=== PATIENT | female | born 1985 | race Two or more races ===

== ENCOUNTER 2018-04-08 11:24 | Emergency (ER) | payer SELFPAY ==
[~2018-04-08] VITALS: Ht 165.1 cm; Wt 81.7 kg
[~2018-04-08 11:24] MED LIST: ACEDIPPM PO; AMOCLA875 PO; AMOX500 PO; ANTOXYBENA OT; Cleocin HCl300 MG PO; DOXY100 PO; Flonase 0.05% N16 GM; HYDACE5 PO; Norco 5-325 Ta1 EACH PO; OXYACE5T PO; RXANTBENOT AU
== END 2018-04-08 13:48 | disposition left against medical advice (07) ==
LOC: ER 11:24
DX: R11.2 Nausea with vomiting, unspecified (principal); R19.7 Diarrhea, unspecified; Z53.21 Procedure and treatment not carried out due to patient leaving prior to being seen by health care provider
CPT/HCPCS: 99281

== ENCOUNTER 2021-09-16 12:39 | Emergency (ER) | payer OTHER ==
[~2021-09-16] VITALS: Ht 165.1 cm; Wt 68.0 kg
[2021-09-16] MEDS ORDERED: GABA400 PO (13:08)
[2021-09-16] MEDS ORDERED: NAPR500ERA PO (13:08)
== END 2021-09-16 15:07 | disposition home or self-care (01) ==
LOC: ER 12:39
DX: F22 Delusional disorders (principal); F17.200 Nicotine dependence, unspecified, uncomplicated; Z88.1 Allergy status to other antibiotic agents; Z88.2 Allergy status to sulfonamides; Z79.899 Other long term (current) drug therapy
CPT/HCPCS: 99282

== ENCOUNTER → 2022-04-23 | Outpatient (CLI) | payer OTHER ==
[~2022-04-23] MED LIST changes: +GABA400 PO; +NAPR500ERA PO
[2022-04-27 10:09] LABS: COTININE Negative ng/mL (Cutoff=300)
== END | disposition home or self-care (01) ==
LOC: LAB SHORT 10:08 → LAB 10:08
PROVIDERS: Orthopaedic Surgery
DX: Z87.891 Personal history of nicotine dependence (principal)

== ENCOUNTER 2022-06-10 10:49 | Day surgery (SDC) | payer OTHER ==
[~2022-06-10] VITALS: Ht 165.1 cm; Wt 76.2 kg
[2022-06-10] MEDS ORDERED: AMIT25 PO (11:33)
--- NOTE | 2022-06-10 11:43 | NUR ---
06/10/22 1143 Minnie Concepcion PT COMFORTABLE IN BED. SIDE RAILS UP. CALL LIGHT WITHIN REACH
[2022-06-10 13:19] VITALS: BP 113/77
== END 2022-06-10 13:17 | disposition home or self-care (01) ==
LOC: ORSCSDS 10:49
PROVIDERS: Orthopaedic Surgery
PROC: 01N54ZZ Release Median Nerve, Percutaneous Endoscopic Approach (ICD-10-PCS; principal; 2022-06-10 12:00)
DX: G56.03 Carpal tunnel syndrome, bilateral upper limbs (principal); Z87.891 Personal history of nicotine dependence; Z79.899 Other long term (current) drug therapy
CPT/HCPCS: J2250; J7120

== ENCOUNTER 2022-07-01 10:06 | Day surgery (SDC) | payer OTHER ==
[~2022-07-01] VITALS: Ht 165.1 cm; Wt 75.3 kg
[~2022-07-01 10:06] MED LIST changes: +AMIT25 PO
[2022-07-01 12:51] VITALS: BP 124/84
--- NOTE | 2022-07-01 13:09 | NUR ---
07/01/22 1309 [facility] HERRING-HENRY BABB ASSISTING WITH CARE.
== END 2022-07-01 13:24 | disposition home or self-care (01) ==
LOC: ORSCSDS 10:06
PROVIDERS: Orthopaedic Surgery
PROC: 01N54ZZ Release Median Nerve, Percutaneous Endoscopic Approach (ICD-10-PCS; principal; 2022-07-01 11:15)
DX: G56.02 Carpal tunnel syndrome, left upper limb (principal); Z87.891 Personal history of nicotine dependence; Z79.899 Other long term (current) drug therapy
CPT/HCPCS: A9270; J2250; J7120

== ENCOUNTER 2022-11-28 13:51 | Emergency (ER) | payer OTHER ==
[~2022-11-28] VITALS: Ht 165.1 cm; Wt 81.7 kg
[2022-11-28 14:41] LABS: BASOPHILS ABSOLUTE AUTO 0.08 K/mm3 (0.00-0.23); BASOPHILS PERCENT AUTO 1 % (0-2); EOSINOPHILS ABSOLUTE AUTO 0.17 K/mm3 (0.00-0.68); EOSINOPHILS PERCENT AUTO 3 % (0-6); Hematocrit 39.1 % (33.0-51.0); Hemoglobin 13.7 g/dL (11.5-16.0); IMMATURE GRAN ABSOLUTE AUTO 0.02 K/mm3 (0.00-0.10); IMMATURE GRAN PERCENT AUTO 0 % (0-1); LYMPHOCYTES ABSOLUTE AUTO 2.29 K/mm3 (0.84-5.20); LYMPHOCYTES PERCENT AUTO 38 % (21-46); MONOCYTES ABSOLUTE AUTO 0.45 K/mm3 (0.16-1.47); MONOCYTES PERCENT AUTO 8 % (4-13); Mean Corpuscular HGB 30.6 pg (26.0-34.0); Mean Corpuscular Volume 88 fL (80-100); Mean Platelet Volume 8.4 fL (9.1-12.4); NEUTROPHILS ABSOLUTE AUTO 2.99 K/mm3 (1.96-9.15); NEUTROPHILS PERCENT AUTO 50 % (41-73); Platelet Count 315 K/mm3 (150-400); RDW Coefficient Variation 12.2 % (11.7-14.2); RDW Standard Deviation 39.3 fL (35.1-46.3); Red Blood Cell Count 4.47 M/mm3 (3.80-5.20)
[2022-11-28 14:57] LABS: Albumin, Blood 3.5 g/dL (3.4-5.0); Albumin/Globulin Ratio 0.9 (0.8-1.8); Bilirubin, Total 0.8 mg/dL (0.1-1.0); Bun/Creatinine Ratio 15.5 (12.0-20.0); Calcium, Blood 8.9 mg/dL (8.5-10.1); Creatinine, Blood 0.9 mg/dL (0.40-1.00); Globulin, Blood 3.9 g/dL (2.2-4.0); Potassium, Blood 3.7 mmol/L (3.5-5.5); Total Protein, Blood 7.4 g/dL (6.4-8.2)
[2022-11-28 16:00] VITALS: BP 143/92
== END 2022-11-28 16:43 | disposition home or self-care (01) ==
LOC: ER 13:51
PROVIDERS: Student in an Organized Health Care Education/Training Program
DX: R07.9 Chest pain, unspecified (principal); M79.89 Other specified soft tissue disorders; F17.210 Nicotine dependence, cigarettes, uncomplicated; Z88.1 Allergy status to other antibiotic agents; Z88.2 Allergy status to sulfonamides; Z79.899 Other long term (current) drug therapy
CPT/HCPCS: 71260; 80053; 85025; 93005; 93010; 93971; 99284-25; Q9967

== ENCOUNTER 2022-12-30 15:32 | Emergency (ER) | payer OTHER ==
[~2022-12-30] VITALS: Ht 165.1 cm; Wt 77.1 kg
[~2022-12-30 15:32] MED LIST changes: -DIPH25 PO; -PRED20 PO; -PYRA250T PO
[2022-12-30 16:10] LABS: BASOPHILS ABSOLUTE AUTO 0.01 K/mm3 (0.00-0.23); BASOPHILS PERCENT AUTO 0 % (0-2); EOSINOPHILS ABSOLUTE AUTO 0.33 K/mm3 (0.00-0.68); EOSINOPHILS PERCENT AUTO 5 % (0-6); Hematocrit 36.6 % (33.0-51.0); Hemoglobin 13.6 g/dL (11.5-16.0); IMMATURE GRAN ABSOLUTE AUTO 0.05 K/mm3 (0.00-0.10); IMMATURE GRAN PERCENT AUTO 1 % (0-1); LYMPHOCYTES ABSOLUTE AUTO 0.57 K/mm3 (0.84-5.20); LYMPHOCYTES PERCENT AUTO 9 % (21-46); MONOCYTES ABSOLUTE AUTO 0.26 K/mm3 (0.16-1.47); MONOCYTES PERCENT AUTO 4 % (4-13); Mean Corpuscular HGB Conc 37.2 g/dL (31.5-36.5); Mean Corpuscular Volume 83 fL (80-100); Mean Platelet Volume 8.6 fL (9.1-12.4); NEUTROPHILS ABSOLUTE AUTO 4.92 K/mm3 (1.96-9.15); NEUTROPHILS PERCENT AUTO 80 % (41-73); Platelet Count 290 K/mm3 (150-400); RDW Coefficient Variation 12.1 % (11.7-14.2); RDW Standard Deviation 37.2 fL (35.1-46.3); Red Blood Cell Count 4.39 M/mm3 (3.80-5.20); White Blood Cell Count 6.14 K/mm3 (4.00-11.30)
[2022-12-30 16:23] LABS: Albumin, Blood 2.9 g/dL (3.4-5.0); Albumin/Globulin Ratio 0.8 (0.8-1.8); Bilirubin, Total 0.1 mg/dL (0.1-1.0); Bun/Creatinine Ratio 9.7 (12.0-20.0); Calcium, Blood 7.5 mg/dL (8.5-10.1); Creatinine, Blood 0.83 mg/dL (0.40-1.00); Globulin, Blood 3.7 g/dL (2.2-4.0); Potassium, Blood 3.5 mmol/L (3.5-5.5); Total Protein, Blood 6.6 g/dL (6.4-8.2)
[2022-12-30 17:54] LABS: Influenza A, PCR NEGATIVE (NEGATIVE); Influenza B, PCR NEGATIVE (NEGATIVE); Resp Syncytial Virus, PCR NEGATIVE (NEGATIVE); SARS-Cov-2 (COVID-19) PCR, MMC NEGATIVE (NEGATIVE)
[2022-12-30 18:43] LABS: Source, Urine Clean Catch
[2022-12-30 18:48] LABS: Bilirubin, Urine Neg (Neg); Blood, Urine 2+ (Neg); Color, Urine Yellow (P-Yellow); Glucose Qualitative, Urine Neg (Neg); Ketones, Urine Neg (Neg); Leukocyte Esterase, Urine Neg (Neg); Nitrite, Urine Neg (Neg); Protein, Urine Neg (Neg); Urobilinogen, Urine NORM (Normal)
[2022-12-30 19:10] LABS: Appearance, Urine Hazy (Clear)
[2022-12-30 19:11] LABS: Squamous Epithelial Cells Few /hpf (Few); White Blood Cells, Urine 0-2 /hpf (0-5)
[2022-12-30 19:12] LABS: Bacteria Mod /hpf
[2022-12-30 19:30] VITALS: BP 93/53
[2022-12-30] MEDS ORDERED: DIPH25 PO (19:49)
[2022-12-30] MEDS ORDERED: PRED20 PO (19:49)
== END 2022-12-30 20:04 | disposition home or self-care (01) ==
LOC: ER 15:32
PROVIDERS: Emergency Medicine
DX: L23.9 Allergic contact dermatitis, unspecified cause (principal); R51.9 Headache, unspecified; Z88.2 Allergy status to sulfonamides; Z88.1 Allergy status to other antibiotic agents; Z79.899 Other long term (current) drug therapy; F17.200 Nicotine dependence, unspecified, uncomplicated; R06.00 Dyspnea, unspecified; R50.9 Fever, unspecified; R07.9 Chest pain, unspecified
CPT/HCPCS: 0241U; 70450; 71046; 80053; 81001; 83605; 84484; 84703; 85025; 85379; 85384; 87086; 96374; 96375; 99285-25; J0780; J1200; J1885; J2930

== ENCOUNTER → 2022-12-30 | Outpatient (CLI) | payer OTHER ==
[~2022-12-30] MED LIST changes: +DIPH25 PO; +PRED20 PO; +PYRA250T PO
[2022-12-30 14:38] LABS: BASOPHILS ABSOLUTE AUTO 0.02 K/mm3 (0.00-0.23); BASOPHILS PERCENT AUTO 0 % (0-2); EOSINOPHILS ABSOLUTE AUTO 0.37 K/mm3 (0.00-0.68); EOSINOPHILS PERCENT AUTO 6 % (0-6); Hematocrit 41.7 % (33.0-51.0); Hemoglobin 15.4 g/dL (11.5-16.0); IMMATURE GRAN ABSOLUTE AUTO 0.04 K/mm3 (0.00-0.10); IMMATURE GRAN PERCENT AUTO 1 % (0-1); LYMPHOCYTES ABSOLUTE AUTO 0.72 K/mm3 (0.84-5.20); LYMPHOCYTES PERCENT AUTO 11 % (21-46); MONOCYTES ABSOLUTE AUTO 0.26 K/mm3 (0.16-1.47); MONOCYTES PERCENT AUTO 4 % (4-13); Mean Corpuscular HGB 30.6 pg (26.0-34.0); Mean Corpuscular HGB Conc 36.9 g/dL (31.5-36.5); Mean Corpuscular Volume 83 fL (80-100); Mean Platelet Volume 8.4 fL (9.1-12.4); NEUTROPHILS ABSOLUTE AUTO 4.93 K/mm3 (1.96-9.15); NEUTROPHILS PERCENT AUTO 78 % (41-73); Platelet Count 324 K/mm3 (150-400); RDW Coefficient Variation 12.3 % (11.7-14.2); RDW Standard Deviation 37.3 fL (35.1-46.3); Red Blood Cell Count 5.03 M/mm3 (3.80-5.20); White Blood Cell Count 6.34 K/mm3 (4.00-11.30)
[2022-12-30 14:49] LABS: Albumin, Blood 3.4 g/dL (3.4-5.0); Albumin/Globulin Ratio 0.8 (0.8-1.8); Bilirubin, Total 0.3 mg/dL (0.1-1.0); Bun/Creatinine Ratio 8.7 (12.0-20.0); Calcium, Blood 8.7 mg/dL (8.5-10.1); Creatinine, Blood 1.04 mg/dL (0.40-1.00); Globulin, Blood 4.3 g/dL (2.2-4.0); Potassium, Blood 3.5 mmol/L (3.5-5.5); Total Protein, Blood 7.7 g/dL (6.4-8.2)
== END | disposition home or self-care (01) ==
LOC: LAB SHORT 14:32 → LAB 14:32
PROVIDERS: Chiropractor
DX: R07.9 Chest pain, unspecified (principal); R06.00 Dyspnea, unspecified; R50.9 Fever, unspecified
CPT/HCPCS: 80053; 83605; 84484; 85025; 85379; 85384; 87040

== ENCOUNTER 2023-01-02 08:34 | Emergency (ER) | payer OTHER ==
[~2023-01-02] VITALS: Ht 165.1 cm; Wt 77.1 kg
[~2023-01-02 08:34] MED LIST changes: +DIPH25 PO; +PRED20 PO
[2023-01-02 10:25] LABS: BASOPHILS ABSOLUTE AUTO 0.04 K/mm3 (0.00-0.23); BASOPHILS PERCENT AUTO 1 % (0-2); EOSINOPHILS ABSOLUTE AUTO 0.06 K/mm3 (0.00-0.68); EOSINOPHILS PERCENT AUTO 1 % (0-6); Hematocrit 38.1 % (33.0-51.0); Hemoglobin 13.8 g/dL (11.5-16.0); IMMATURE GRAN ABSOLUTE AUTO 0.03 K/mm3 (0.00-0.10); IMMATURE GRAN PERCENT AUTO 0 % (0-1); LYMPHOCYTES ABSOLUTE AUTO 0.83 K/mm3 (0.84-5.20); LYMPHOCYTES PERCENT AUTO 12 % (21-46); MONOCYTES ABSOLUTE AUTO 0.14 K/mm3 (0.16-1.47); MONOCYTES PERCENT AUTO 2 % (4-13); Mean Corpuscular HGB 30.1 pg (26.0-34.0); Mean Corpuscular HGB Conc 36.2 g/dL (31.5-36.5); Mean Corpuscular Volume 83 fL (80-100); Mean Platelet Volume 8.6 fL (9.1-12.4); NEUTROPHILS ABSOLUTE AUTO 5.77 K/mm3 (1.96-9.15); NEUTROPHILS PERCENT AUTO 84 % (41-73); Platelet Count 351 K/mm3 (150-400); RDW Coefficient Variation 12.7 % (11.7-14.2); RDW Standard Deviation 38.5 fL (35.1-46.3); Red Blood Cell Count 4.58 M/mm3 (3.80-5.20); White Blood Cell Count 6.87 K/mm3 (4.00-11.30)
[2023-01-02 10:39] LABS: Albumin, Blood 3.6 g/dL (3.4-5.0); Albumin/Globulin Ratio 0.9 (0.8-1.8); Bilirubin, Total 0.3 mg/dL (0.1-1.0); Bun/Creatinine Ratio 18.1 (12.0-20.0); Calcium, Blood 8.4 mg/dL (8.5-10.1); Creatinine, Blood 0.89 mg/dL (0.40-1.00); Globulin, Blood 4.2 g/dL (2.2-4.0); Potassium, Blood 3.5 mmol/L (3.5-5.5); Total Protein, Blood 7.8 g/dL (6.4-8.2)
[2023-01-02] MEDS ORDERED: PRED20 PO (12:07)
[2023-01-02] MEDS ORDERED: PYRA250T PO (12:18)
[2023-01-02 12:51] VITALS: BP 144/97
[2023-01-02 12:52] LABS: U Amphetamine Screen DETECTED; U Barbituate Screen Not Detected; U Benzodiazapine Screen Not Detected; U Buprenorphine Screen Not Detected; U Cannabinoids Screen Not Detected; U Cocaine Screen Not Detected; U Methadone Screen Not Detected; U Methamphetamine Screen DETECTED; U Opiates Screen Not Detected; U Oxycodone Screen Not Detected; U Phencyclidine Screen Not Detected; U Propoxyphene Screen Not Detected
[2023-01-03 23:08] LABS: CHLAMYDIA TRACHOMATIS, NAA Negative (Negative)
[2023-01-04 04:09] LABS: HBSAG SCREEN Negative (Negative); HCV ANTIBODY Non Reactive (Non Reactive); HEP B CORE AB, TOT Negative (Negative)
[2023-01-04 07:09] LABS: RHEUMATOID ARTHRITIS FACTOR <10.0 IU/mL (<14.0)
[2023-01-06 19:08] LABS: FINAL INTERPRETATION HIV Negative (.); HIV 1 AB Non Reactive (Non Reactive); HIV 1 RNA QUALITATIVE Non Reactive (Non Reactive); HIV 2 AB Non Reactive (Non Reactive); HIV 2 RNA QUALITATIVE Non Reactive (Non Reactive); HIV AB/P24 AG SCREEN Preliminary Reactive (Non Reactive); INTERPRETATION: Negative (.)
== END 2023-01-02 12:52 | disposition home or self-care (01) ==
LOC: ER 08:34
PROVIDERS: Family Medicine
DX: L50.9 Urticaria, unspecified (principal); E86.0 Dehydration; Z88.2 Allergy status to sulfonamides; Z88.1 Allergy status to other antibiotic agents; Z79.52 Long term (current) use of systemic steroids; F17.200 Nicotine dependence, unspecified, uncomplicated
CPT/HCPCS: 80053; 84443; 84484; 85025; 86038; 86140; 86200; 86431; 86592; 86704; 86803; 87340; 87389; 87491; 87591; 93005; 93010; 96361; 96374; 96375; 99285-25; G0480; J1200; J2930; J7030

== ENCOUNTER 2023-11-05 21:39 | Emergency (ER) | payer OTHER ==
[~2023-11-05] VITALS: Ht 165.1 cm; Wt 81.7 kg
[~2023-11-05 21:39] MED LIST changes: +PYRA250T PO
[2023-11-05 21:45] VITALS: BP 146/89
[2023-11-05] MEDS ORDERED: Prednisone20 MG PO (21:48)
[2023-11-05] MEDS ORDERED: PredniSONE 20 MG Tab PO ONE (21:50)
== END 2023-11-05 21:51 | disposition home or self-care (01) ==
LOC: ER 21:39
DX: L23.7 Allergic contact dermatitis due to plants, except food (principal); Z88.1 Allergy status to other antibiotic agents; Z88.2 Allergy status to sulfonamides; Z79.899 Other long term (current) drug therapy; Z79.52 Long term (current) use of systemic steroids; F17.200 Nicotine dependence, unspecified, uncomplicated
CPT/HCPCS: 99282; J7512

== ENCOUNTER 2024-11-01 13:25 | Emergency (ER) | payer OTHER ==
[~2024-11-01] VITALS: Ht 165.1 cm; Wt 72.6 kg
[~2024-11-01 13:25] MED LIST changes: +Prednisone20 MG PO
[2024-11-01 14:30] VITALS: BP 142/93
[2024-11-01 15:43] LABS: BASOPHILS ABSOLUTE AUTO 0.09 K/mm3 (0.00-0.23); BASOPHILS PERCENT AUTO 1 % (0-2); EOSINOPHILS ABSOLUTE AUTO 0.15 K/mm3 (0.00-0.68); EOSINOPHILS PERCENT AUTO 2 % (0-6); Hematocrit 39.8 % (33.0-51.0); Hemoglobin 14.2 g/dL (11.5-16.0); IMMATURE GRAN ABSOLUTE AUTO 0.02 K/mm3 (0.00-0.10); IMMATURE GRAN PERCENT AUTO 0 % (0-1); LYMPHOCYTES ABSOLUTE AUTO 2.27 K/mm3 (0.84-5.20); LYMPHOCYTES PERCENT AUTO 37 % (21-46); MONOCYTES ABSOLUTE AUTO 0.51 K/mm3 (0.16-1.47); MONOCYTES PERCENT AUTO 8 % (4-13); Mean Corpuscular HGB Conc 35.7 g/dL (31.5-36.5); Mean Corpuscular Volume 86 fL (80-100); NEUTROPHILS ABSOLUTE AUTO 3.17 K/mm3 (1.96-9.15); NEUTROPHILS PERCENT AUTO 51 % (41-73); NRBC ABSOLUTE 0.00 K/mm3 (0.00-0.02); NRBC Auto 0.0 /100 WBC (0.0-0.2); Platelet Count 409 K/mm3 (150-400); RDW Coefficient Variation 12.7 % (11.7-14.2); RDW Standard Deviation 39.8 fL (35.1-46.3)
[2024-11-01 16:19] LABS: Alanine Aminotransfer (ALT/SGP 17.0 U/L (12-78); Albumin, Blood 3.5 g/dL (3.4-5.0); Albumin/Globulin Ratio 0.9 (0.8-1.8); Anion Gap 7.0 mmol/L (3-11); Aspartate Aminotrans (AST/SGOT 20.0 U/L (12-37); Bilirubin, Total 1.0 mg/dL (0.1-1.0); Blood Urea Nitrogen 8.0 mg/dL (8-24); CO2, Blood 27.0 mmol/L (21-32); Calcium, Blood 8.7 mg/dL (8.5-10.1); Chloride, Blood 106.0 mmol/L (98-108); Creatinine, Blood 0.83 mg/dL (0.40-1.00); Globulin, Blood 3.7 g/dL (2.2-4.0); Glucose, Blood 88.0 mg/dL (70-99); Potassium, Blood 4.2 mmol/L (3.5-5.5); Sodium, Blood 136.0 mmol/L (136-145); Total Protein, Blood 7.2 g/dL (6.4-8.2)
[2024-11-01 17:15] LABS: Source, Urine Clean Catch
[2024-11-01] MEDS ORDERED: CEPH500 PO (17:19)
[2024-11-01 17:21] LABS: Bilirubin, Urine Neg (Neg); Color, Urine Yellow (P-Yellow); Glucose Qualitative, Urine Neg (Neg); Ketones, Urine Neg (Neg); Leukocyte Esterase, Urine 1+ (Neg); Protein, Urine Neg (Neg); Specific Gravity, Urine 1.015 (1.003-1.022); Urobilinogen, Urine NORM (Normal)
[2024-11-01 17:32] LABS: Red Blood Cells, Urine 0-2 /hpf (0-2)
== END 2024-11-01 17:30 | disposition home or self-care (01) ==
LOC: ER 13:25
PROVIDERS: Physician Assistant
DX: N39.0 Urinary tract infection, site not specified (principal); R21 Rash and other nonspecific skin eruption; F17.200 Nicotine dependence, unspecified, uncomplicated; Z88.2 Allergy status to sulfonamides; Z88.1 Allergy status to other antibiotic agents; Z79.899 Other long term (current) drug therapy
CPT/HCPCS: 80053; 81001; 83690; 84484; 85025; 87077; 87086; 87186; 93005; 93010; 99283-25